=== PATIENT | male | born 2000 | race African-American/Black ===

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

== ENCOUNTER 2020-01-28 10:57 | Emergency (ER) | payer MEDICAID ==
[~2020-01-28] VITALS: Ht 162.6 cm; Wt 48.0 kg
[2020-01-28 11:10] VITALS: BP 129/60
== END 2020-01-28 13:00 | disposition home or self-care (01) ==
LOC: ER 10:57
DX: L25.9 Unspecified contact dermatitis, unspecified cause (principal); F12.10 Cannabis abuse, uncomplicated
CPT/HCPCS: 99282